=== PATIENT | female | born 1940 | race African-American/Black ===

== ENCOUNTER → 2016-05-28 | Outpatient (CLI) | payer OTHER | LOC: LAB 09:29 | PROVIDERS: ATTEND Nurse Practitioner Family | DX: I48.91 Unspecified atrial fibrillation (principal) | CPT/HCPCS: 36415; 85610 ==

== ENCOUNTER → 2016-06-11 | Outpatient (CLI) | payer OTHER | LOC: LAB 09:44 | PROVIDERS: ATTEND Nurse Practitioner Family | DX: I48.91 Unspecified atrial fibrillation (principal) | CPT/HCPCS: 36415; 85610 ==

== ENCOUNTER → 2016-07-23 | Outpatient (CLI) | payer OTHER | LOC: LAB 09:16 | PROVIDERS: ATTEND Nurse Practitioner Family | DX: I48.91 Unspecified atrial fibrillation (principal) | CPT/HCPCS: 36415; 85610 ==

== ENCOUNTER → 2016-08-04 | Outpatient (CLI) | payer OTHER | LOC: LAB 08:21 | PROVIDERS: ATTEND Nurse Practitioner Family | DX: I48.91 Unspecified atrial fibrillation (principal) | CPT/HCPCS: 36415; 85610 ==

== ENCOUNTER → 2016-11-04 | Outpatient (CLI) | payer OTHER | LOC: LAB 08:22 | PROVIDERS: ATTEND Internal Medicine Clinical Cardiac Electrophysiology | DX: I48.91 Unspecified atrial fibrillation (principal) | CPT/HCPCS: 36415; 85610 ==

== ENCOUNTER → 2016-12-19 | Outpatient (CLI) | payer OTHER | LOC: LAB 08:40 | PROVIDERS: ATTEND Internal Medicine Clinical Cardiac Electrophysiology | DX: I48.91 Unspecified atrial fibrillation (principal) | CPT/HCPCS: 36415; 85610 ==

== ENCOUNTER 2017-03-05 10:41 | Emergency (ER) | payer OTHER ==
[2017-03-05] MEDS ORDERED: DILAUDID INJ IM ONE (10:52)
[2017-03-05 10:58] VITALS: BP 173/74; BMI 44.2
[2017-03-05] MEDS ORDERED: DILAUDID INJ ONE (11:01)
--- NOTE | 2017-03-05 11:38 | DR.EXTPAIN ---
HPI - Time seen Time seen: 10:45 - PCP Primary Care Physician: MATT - Complaint/Symptoms Chief Complaint Doctor Comments: Patient fell one week ago sustained a fracture through the proximal humeral diaphysis with associated foreshortening and lateral displacement of the distal fragment. The non-displaced component extends cranially into the greater humeral tuberosity. She was evaluated by [facility] and ortho felt they could not do surgery due to PMH of A.Fib and cardiac pacemaker. She stated that the rudy had increased and needed pain relief. She has been afebrile of the left upper extremity. Chief Complaint:: PT C/O LT SHOULDER PAIN. PT STATES SHE FELL X1 WEEK AGO AND HAS SEEN A ORTHOPEDIC. PT STATES SHE IS JUST HAVING SEVERE PAIN. NOTED SWELLING , BRUISING AND NOTED SHOULDER TO BE WARM TO TOUCH. - Source History Provided: Patient - Mode of arrival Mode of Arrival: EMS - Timing Onset of Chief Complaint: 03/04/17 PMH - PMH Past Medical History: Yes Past Medical History: Coronary Artery Disease, GERD, Hypertension, Sleep Apnea Past Medical History Comment: A FIB Past Surgical History: Yes Surgical History: Hysterectomy Past Surgical History Comment: TUBALIGATION,CARDIOVERSION, PACE MAKER - Family History History of Family Medical Conditions: No - Social History Does any household member use tobacco: No Alcohol Use: None Do you use any recreational Drugs:: No Lives With: Family Lives Where: Home - infectious screening In the last 2 months have you had wt loss of >10#?: YES Have you had fever, night sweats or hemotysis?: No Have you traveled outside the country in the last 6 months?: No Isolation: Standard ROS - Review of Systems Eyes: No Symptoms Reported ENTM: No Symptoms Reported Respiratoy: No Symptoms Reported Cardiovascular: No Symptoms Reported Gastrointestinal/Abdominal: No Symptoms Reported Genitourinary: No Symptoms Reported Neurological: No Symptoms Reported Musculoskeletal: Left (upper extremity) Integumentary: No Symptoms Reported Hematologic/Lymphatic: No Symptoms Reported Endocrine: No Symptoms Reported Psychiatric: No Symptoms Reported All Other Systems: Reviewed and Negative PE - Vital Signs Vitals: Temperature 97.8 F Pulse Rate 79 Respiratory Rate 18 Blood Pressure 173/74 O2 Sat by Pulse Oximetry 96 - General Limitations: No Limitations General Appearance: Alert, In No Apparent Distress - Head Head Exam: Normal Inspection, Atraumatic - Eyes Eye exam: Normal Appearance, PERRL, EOMI - ENT ENT Exam: Normal Exam - Neck Neck Exam: Normal Inspection - Cardiovascular Cardiovascular Exam: Regular Rate - Abdominal Exam Abdominal Exam: Normal Inspection, Normal Bowel Sounds Abdominal Tenderness: negative: RUQ, RLQ, LUQ, LLQ, Epigastrium, Suprapubic, Diffuse, Mild, Moderate, Severe, Other - Extremities Extremities Exam: Normal Inspection, Full ROM - Upper Extremities Shoulder Exam: Normal Inspection Arm Exam: Tenderness, Swelling (left upper extremity) Elbow Exam: Normal Inspection Forearm Exam: Normal Inspection Hand Exam: Normal Inspection Neuromotor Exam: Normal Exam Neurosensory Exam: Normal Exam Upper Ext. Vascular Exam: Capillary Refill (normal) - Lower Extremities Hip/Pelvis Exam: Normal Inspection Upper Leg Exam: Normal Inspection Knee Exam: Normal Inspection Lower Leg Exam: Normal Inspection Ankle Exam: Normal Inspection Neurovascular/Tendon Exam: Normal Capillary Refill - Back Back Exam: Normal Inspection - Neurological Neurological Exam: Alert, Oriented X3, CN II-XII Intact - Skin Skin Exam: Warm, Dry, Intact Course - Reevaluation 1st: Improved - Consultation Called: 13:05 (Patient accepted by Jeniffer on behalf of ortho ) ROR - XRAY XRAY Interpreted by: Radiologist (Left Upper extremity: Mildly displaced obliquely oriented fracture of the proximal diaphysis with cranial extension into the greater humeral tuberosity.) - Diagnosis Discharge Problem: Proximal Humeral Diaphysis fracture-Left - Discharge Plan Condition: Stable - Follow ups/Referrals Follow ups/Referrals: Syed GUTIERREZ [Primary Care Provider] - 3 days - Instructions
--- NOTE | 2017-03-05 11:52 | CT ---
CT left shoulder without contrast Indication: Fall 1 week ago with shoulder pain Technique: Helical CT images of the left shoulder were obtained without IV contrast. Reformatted imag es in the coronal and sagittal planes were also generated for review. Comparison: None Findings: There is an obliquely oriented fracture through the proximal humeral diaphysis with mild as sociated foreshortening and lateral displacement of the distal fragment. There is a nondisplaced comp onent, which extends cranially into the greater humeral tuberosity. The humeral head is intact and re nicole well seated within the glenoid without dislocation. Mild degenerative changes of the AC joint a re noted. No additional fracture is identified. Within the limits of a noncontrast CT, the tendons of the rotator cuff appear grossly intact. No juan s tendon retraction is seen to suggest full-thickness rotator cuff tear. There is mild soft tissue st randing and swelling about the proximal humeral shaft. The remaining unenhanced superficial soft tiss ues are grossly unremarkable. A left-sided pacemaker is partially visualized. The imaged left hemitho rax is otherwise unremarkable. Impression: Mildly displaced obliquely oriented fracture of the proximal humeral diaphysis with cranial extension into the greater humeral tuberosity, as detailed above. Reported By:
== END 2017-03-05 13:45 | disposition short-term general hospital (02) ==
LOC: ER 10:45
DX: S42.202A Unspecified fracture of upper end of left humerus, initial encounter for closed fracture (principal); W19.XXXA Unspecified fall, initial encounter; Y92.9 Unspecified place or not applicable
CPT/HCPCS: 73200; 96365; 96372; 99283; 99285; A4222

== ENCOUNTER → 2017-03-11 | Outpatient (CLI) | payer OTHER ==
[2017-03-05 10:58] VITALS: BP 173/74
== END ==
LOC: LAB 10:50
PROVIDERS: ATTEND Internal Medicine Clinical Cardiac Electrophysiology
DX: I48.91 Unspecified atrial fibrillation (principal)
CPT/HCPCS: 36415; 85610

== ENCOUNTER → 2017-06-05 | Outpatient (CLI) | payer OTHER | LOC: LAB 09:02 | PROVIDERS: ATTEND Nurse Practitioner | DX: I48.91 Unspecified atrial fibrillation (principal) | CPT/HCPCS: 36415; 85610 ==

== ENCOUNTER → 2017-07-06 | Outpatient (CLI) | payer OTHER ==
[2017-07-06 09:32] LABS: BLOOD UREA NITROGEN 11 mg/dL (7-18); CALCIUM 8.6 mg/dL (8.5-10.1); CARBON DIOXIDE 29.4 mmol/L (21-32); CHLORIDE 105 mmol/L (98-107); CREATININE 0.86 mg/dL (0.55-1.02); SODIUM 141 mmol/L (136-145); eGFR BLACK RACES > 60 (>60); eGFR NON BLACK RACES > 60 (>60)
== END ==
LOC: LAB 09:12
PROVIDERS: ATTEND Nurse Practitioner
DX: I48.91 Unspecified atrial fibrillation (principal); I10 Essential (primary) hypertension
CPT/HCPCS: 36415; 80048; 85610